=== PATIENT | male | born 1965 | race Caucasian/White ===

== ENCOUNTER 2017-10-31 13:34 | Inpatient (IN) | payer SELFPAY ==
[~2017-10-31 13:34] MED LIST: DEXAMETHASONE SOD PHOSPHATE INJ 4 MG/1 ML VIAL ONE; GLYCOPYRROLATE INJ 0.4 MG/2 ML VIAL ONE; LIDOCAINE 2% INJ-PF (20 MG/ML) 2 ML AMPUL ONE; NEOSTIGMINE METHYLSULFATE 10 MG/10 ML VIAL ONE; ONDANSETRON HCL INJ/PF 4 MG/2 ML SDV ONE; PHENYLEPHRINE HCL INJ/PF 10 MG/1 ML SDV ONE; ROCURONIUM BROMIDE INJ 50 MG/5 ML VIAL IV ONE; SUCCINYLCHOLINE CHLORIDE INJ 200 MG/10 ML VIAL ONE
[2017-10-31] MEDS ORDERED: ONDANSETRON HCL INJ/PF 4 MG/2 ML SDV IV PRN (22:11)
[2017-10-31] MEDS: MORPHINE SULFATE 10 MG/ML INJ IV PRN (22:48)
--- NOTE | 2017-10-31 23:34 | EKG REPORT ---
SEVERITY:- OTHERWISE NORMAL ECG - SINUS TACHYCARDIA : Confirmed by: Paulo Delgado 31-Oct-2017 23:34:19
--- NOTE | 2017-10-31 23:45 | PDOC H&P ---
History of Present Illness Admission Date/PCP: 10/31/17 19:46 Patient complains of: abdominal pains History of Present Illness: FRANCINE BURNS is a 52 year old male who felt a "pop" in the abdomen 3 days ago while having BM. Since then with abdominal pains with off and on diarrhea. C/O fever and chills and seen at ED. CT scan abdomen showed acute sigmoid diverticulitis with free air. Past Medical History Medical History: None Past Surgical History Past Surgical History: Reports: None Social History Smoking Status: Current Every Day Smoker Cigarettes Packs Per Day: 1 Frequency of Alcohol Use: Heavy - 6pack beer daily. Last drink during Holidays Hx Recreational Drug Use: No - Advance Directive Resuscitation Status: Full Code Family History Parental Family History Reviewed: Yes - mother with diverticulitis Children Family History Reviewed: Yes - Has GI problem Sibling(s) Family History Reviewed.: No Medication/Allergy Allergies/Adverse Reactions: Penicillins Allergy (Mild, Verified 11/01/17 02:10) Skin Redness Review of Systems Constitutional: PRESENT: chills, fever(s) Eyes: PRESENT: other - no vcisual/hearing problems Nose, Mouth, and Throat: PRESENT: other - no sore throat Cardiovascular: PRESENT: other - no chest pains Respiratory: PRESENT: cough Gastrointestinal: PRESENT: abdominal pain, nausea, vomiting Genitourinary: PRESENT: other - no dysuria Musculoskeletal: PRESENT: other - no back pain Integumentary: PRESENT: other - no rash Neurological: PRESENT: other - no seizures Psychiatric: PRESENT: other - no anxiety Endocrine: PRESENT: other - no polyuria Hematologic/Lymphatic: PRESENT: other - no easy bruisability Physical Exam Vital Signs: Temp Pulse Resp BP Pulse Ox 98 F 94 18 106/63 97 10/31/17 21:35 10/31/17 21:35 10/31/17 21:35 10/31/17 21:35 10/31/17 21:35 Intake & Output 10/30/17 10/31/17 11/01/17 06:59 06:59 06:59 Intake Total 3300 Output Total 700 Balance 2600 Weight 69.5 kg General appearance: PRESENT: severe distress Head exam: PRESENT: atraumatic Eye exam: PRESENT: conjunctiva pink Mouth exam: PRESENT: dry mucosa Neck exam: PRESENT: full ROM Respiratory exam: PRESENT: clear to auscultation ella Cardiovascular exam: PRESENT: tachycardia Pulses: PRESENT: normal radial pulses Vascular exam: PRESENT: normal capillary refill GI/Abdominal exam: PRESENT: rebound, rigid, tenderness Rectal exam: PRESENT: deferred Extremities exam: PRESENT: full ROM Musculoskeletal exam: PRESENT: ambulatory Neurological exam: PRESENT: alert, oriented to person, oriented to place, oriented to time, oriented to situation Psychiatric exam: PRESENT: appropriate affect Skin exam: PRESENT: normal color, warm Assessment & Plan - Diagnosis (1) Perforation of sigmoid colon due to diverticulitis Is this a current diagnosis for this admission?: Yes - Time Time Spent: 30 to 50 Minutes - Inpatient Certification Medical Necessity: Need For IV Fluids, Need for Pain Control, Need for IV Antibiotics, Need for Surgery - Plan Summary Plan Summary: Hydrate IV antibiotics For Explore lap,colostomy
[2017-10-31] MEDS: NORMAL SALINE 1000 ML 1,000 ML IV PRN (23:53)
[2017-10-31] MEDS: METRONIDAZOLE 500 MG/NS RTU 100 ML IV SCH (23:54)
[2017-10-31] MEDS: CIPROFLOXACIN 400 MG/D5W RTU 400 MG/200 ML RTUPB IV SCH (23:54)
--- NOTE | 2017-11-01 01:08 | OPERATIVE REPORT E ---
Operative Report NAME: FRANCINE BURNS : 1965 AGE: 52Y DATE OF SURGERY: 10/31/2017 ROOM: 609 PREOPERATIVE DIAGNOSIS: Perforated sigmoid diverticulitis with peritonitis. POSTOPERATIVE DIAGNOSIS: Perforated sigmoid diverticulitis with peritonitis. PROCEDURE PERFORMED: Exploratory laparotomy, sigmoid resection, and sigmoid colostomy, and Saw's pouch. SURGEON: URI [place] M.D. ANESTHESIA: General. INDICATION: This is a 52-year-old male who complained of severe pains of the abdomen for the past 3 days. Initially he noted a pop in the abdomen about 3 days ago, and has been having off and on abdominal pains and worsening today. Also, it has been off and on with diarrhea. He had a fever today with chills. A CT scan revealed a perforated bowel, likely from a sigmoid colon, with free air. DESCRIPTION OF PROCEDURE: After adequate general anesthesia, the patient was placed in supine position and the abdomen prepped and draped in the usual sterile fashion. A midline incision was made at the mid-epigastric area down to the symphysis pubis. The abdominal cavity was then entered, and a lot of purulent material noted all over the abdominal cavity. Cultures were obtained. Attention was then directed to the area of the sigmoid colon which was noted to be boggy with adhesions of small bowel. The adhesions were bluntly lysed. The proximal part of the sigmoid colon which was soft was then divided with a JORDAN stapler. The sigmoid colon, which appears to have perforation, was then dissected, and the posterior area divided and cauterized with the use of LigaSure down to softer area distally. The distal part of the colon above the peritoneal fold towards the rectum, which was softer, was then divided with TA-70. The specimen was then removed and noted to be markedly thickened, which on the medial side had some dark discoloration which appears to be the site of the perforation which was partially sealed with the small bowel. Specimen was about 16 cm long. The small bowel was then run and there was an area of foreign exudate that appears to be the one plastered to the sigmoid colon. The whole bowel appears to be viable. It was then checked from the ileum up to the ligament of Treitz and then jejunum. All the bowel noted to be intact. Abdominal cavity was then copiously irrigated with saline solution of at least 6 liters until flow was clear. I had a good hemostasis noted. A Dario-Mei drain was then placed through a stab wound in the right lower quadrant and placed into the pelvis, just above the Saw's pouch that was created. The sigmoid colon was then mobilized by dissecting through the lateral wall. We used scissors and blunt dissection. Medial area was also divided with the use of harmonic maricruz. An area in the left paraumbilical area was then identified for the colostomy site. Circumferential skin was removed, about 2.5 cm in diameter. The fascia was then divided with the use of cautery in a cruciate fashion, allowing at least 2 fingers to go through the rectus muscle towards the skin. Next the sigmoid was then passed through the created defect of the abdominal wall, making sure it is not twisted. Next, the fascia was then closed with running suture using 0 PDS, starting at both ends and tying them just above the umbilicus. The subcutaneous was then irrigated with saline solution. The skin was closed with anabel and embedded anbael. Telfa darren soaked in Betadine were placed. A sterile dressing was placed over the incision site. The drain was anchored to the skin with 3-0 Prolene. Attention was then directed to creating the end sigmoid colostomy.The sigmoid colon which was protruding was then stapled with an Endo JORDAN about 2 cm above the skin. The colostomy was then opened with the use of cautery. The edges of the sigmoid colon were then sutured to the dermis with serial interrupted 3-0 Vicryl. Colostomy appeared viable, and a colostomy bag was then placed over the colostomy. The patient tolerated the procedure well. Needle, instruments, and sponge counts were all correct. Estimated blood loss was about 100 mL. Patient was then brought to the recovery room in satisfactory condition, extubated. DICTATING PHYSICIAN: URI [place] M.D. [id number] PHY#: [id number] ID: [id number] JOB#: [id number] ACCT: [id number] cc:URI [place] M.D. > [facility]
[2017-11-01] MEDS ORDERED: INFLUENZA ADLT QUAD (36MOS+) 2017-18 VAC 0.5 ML SYR IM PRN (02:45)
[2017-11-01] MEDS: MORPHINE SULFATE 10 MG/ML INJ IV PRN ×3 (03:48→21:27)
[2017-11-01 05:59] LABS: ABSOLUTE LYMPHOCYTES (AUTO) 1.4 10^3/uL (0.5-4.7); ABSOLUTE MONOCYTES (AUTO) 0.8 10^3/uL (0.1-1.4); ABSOLUTE NEUT (AUTO) 17.7 10^3/uL (1.7-8.2); BASOPHILS % (AUTO) 0.1 % (0-2); HEMOGLOBIN 11.6 g/dL (13.5-17.0); LYMPHOCYTES % (AUTO) 7.1 % (13-45); MEAN CORPUSCULAR HEMOGLOBIN 32.3 pg (27.0-33.4); MEAN CORPUSCULAR HGB CONC 33.2 g/dL (32.0-36.0); MEAN CORPUSCULAR VOLUME 97 fl (80-97); MONOCYTES % (AUTO) 3.9 % (3-13); PLATELET COUNT 316 10^3/uL (150-450); RED CELL DISTRIBUTION WIDTH 13.2 % (11.5-14.0); SEGMENTED NEUTROPHILS % (AUTO) 88.9 % (42-78); TOTAL CELLS COUNTED % (AUTO) 100 %; WHITE BLOOD COUNT 19.9 10^3/uL (4.0-10.5)
[2017-11-01 06:18] LABS: ANION GAP 7 (5-19); BLOOD UREA NITROGEN 11 mg/dL (7-20); CALCIUM 7.4 mg/dL (8.4-10.2); CARBON DIOXIDE 23 mmol/L (22-30); CHLORIDE 104 mmol/L (98-107); GLUCOSE 123 mg/dL (75-110); POTASSIUM 4.6 mmol/L (3.6-5.0); SODIUM 133.7 mmol/L (137-145)
[2017-11-01] MEDS: METRONIDAZOLE 500 MG/NS RTU 100 ML IV SCH ×3 (06:28→21:30)
[2017-11-01 07:52] LABS: HEMATOCRIT 36.7 % (37.9-51.0); HEMOGLOBIN 12.6 g/dL (13.5-17.0); MEAN CORPUSCULAR HEMOGLOBIN 32.8 pg (27.0-33.4); MEAN CORPUSCULAR HGB CONC 34.2 g/dL (32.0-36.0); MEAN CORPUSCULAR VOLUME 96 fl (80-97); RED BLOOD COUNT 3.83 10^6/uL (4.35-5.55); RED CELL DISTRIBUTION WIDTH 12.8 % (11.5-14.0); WHITE BLOOD COUNT 16.9 10^3/uL (4.0-10.5)
[2017-11-01 07:55] LABS: ABSOLUTE MONOCYTES # (MANUAL) 0.7 10^3/uL (0.1-1.4); ABSOLUTE NEUTROPHILS# (MANUAL) 15.2 10^3/uL (1.7-8.2); BAND NEUTROPHILS % (MANUAL) 7 % (3-5); BASOPHILS % (MANUAL) 0 % (0-2); EOSINOPHILS % (MANUAL) 0 % (0-6); LYMPHOCYTES % (MANUAL) 6 % (13-45); METAMYELOCYTES % (MANUAL) 1 % (0); MONOCYTES % (MANUAL) 4 % (3-13); SEGMENTED NEUTROPHILS % (MAN) 82 % (42-78); TOTAL CELLS COUNTED 100; TOXIC GRANULATION 2+
[2017-11-01 07:56] LABS: PLATELET CLUMPS PRESENT; PLATELET COUNT 352 10^3/uL (150-450); PLATELET GIANT PRESENT; PLATELET LARGE PRESENT; SCHISTOCYTES 1+; TEAR DROP CELLS SLIGHT; TOXIC VACUOLATION PRESENT
[2017-11-01] MEDS: NORMAL SALINE 1000 ML 1,000 ML IV PRN ×2 (08:38→17:15)
--- NOTE | 2017-11-01 08:38 | PDOC PROGRESS REPORT ---
Subjective Progress Note for:: 11/01/17 Reason For Visit: SMALL BOWEL OBSTRUCTION Patient had an uneventful night, remains hemodynamically stable. Tolerated extubation. Physical Exam Vital Signs: Temp Pulse Resp BP Pulse Ox 98.6 F 90 14 112/74 100 10/31/17 21:50 10/31/17 21:50 11/01/17 06:36 11/01/17 06:36 11/01/17 06:36 Intake & Output 10/31/17 11/01/17 11/02/17 06:59 06:59 06:59 Intake Total 3300 Output Total 2020 Balance 1280 Weight 69.5 kg General appearance: PRESENT: no acute distress GI/Abdominal exam: PRESENT: other - Abdomen appropriately tender; honeycomb dressing with the Betadine stained plugs in between anabel; ostomy is pink. Sero sanguinous drainage from drain Results Laboratory Results: 11/01/17 05:40 11/01/17 05:40 11/01/17 11/01/17 05:40 05:40 WBC 19.9 H RBC 3.60 L Hgb 11.6 L Hct 35.0 L MCV 97 MCH 32.3 MCHC 33.2 RDW 13.2 Plt Count 316 Seg Neutrophils % 88.9 H Lymphocytes % 7.1 L Monocytes % 3.9 Eosinophils % 0.0 Basophils % 0.1 Absolute Neutrophils 17.7 H Absolute Lymphocytes 1.4 Absolute Monocytes 0.8 Absolute Eosinophils 0.0 Absolute Basophils 0.0 Sodium 133.7 L Potassium 4.6 Chloride 104 Carbon Dioxide 23 Anion Gap 7 BUN 11 Creatinine 0.56 Est GFR ( Amer) > 60 Est GFR (Non-Af Amer) > 60 Glucose 123 H Calcium 7.4 L Assessment & Plan - Diagnosis (1) Perforation of sigmoid colon due to diverticulitis Is this a current diagnosis for this admission?: Yes Plan: Postoperative day one half status post exploratory laparotomy, sigmoid colectomy , He's pouch, drain placement by Dr. Brown doing well, no complications. Plan: 1. We will get patient out of bed, clamp nasogastric tube; if tolerated, will discontinue. 2. We will initiate intravenous acetaminophen, and Toradol IV for pain management. 3. Patient continues to do well, anticipate transfer to the floor. 4. Discussed the above with patient and family at bedside. - Time Time Spent with patient: 15-24 minutes
[2017-11-01] MEDS ORDERED: KETOROLAC TROMETHAMINE INJ/PF 30 MG/1 ML SDV INJ PRN (08:53)
--- NOTE | 2017-11-01 09:47 | RADIOLOGY REPORT (SQ) ---
EXAM DESCRIPTION: CT ABD/PELVIS WITH IV ONLY COMPLETED DATE/TIME: 11/01/2017 1:31 am REASON FOR STUDY: SUDDEN ONSET ABD PAIN COMPARISON: None. TECHNIQUE: CT scan of the abdomen and pelvis performed using helical scanning technique with dynamic intravenous contrast injection. No oral contrast. Images reviewed with lung, soft tissue, and bone windows. Reconstructed coronal and sagittal MPR images reviewed. Delayed images for evaluation of the urinary system also acquired. All images stored on PACS. All CT scanners at this facility use dose modulation, iterative reconstruction, and/or weight based d osing when appropriate to reduce radiation dose to as low as reasonably achievable (ALARA). [facility]: Dose Right [facility]: CareDose [facility]: Dose Right [facility]: Teradose 4D [facility]: MedAvail CONTRAST TYPE AND DOSE: 71 mL Isovue 370 RENAL FUNCTION: GFR > 60. RADIATION DOSE: . LIMITATIONS: None. FINDINGS: LOWER CHEST: Calcified granuloma right lower lobe. Dependent subsegmental atelectasis. N o acute findings. LIVER: Normal size. No masses. No dilated ducts. SPLEEN: Normal size. No focal lesions. PANCREAS: No masses. No significant calcifications. No adjacent inflammation or peripancreatic fluid collections. Pancreatic duct not dilated. GALLBLADDER: No identified stones by CT criteria. No inflammatory changes to suggest cholecystitis. ADRENAL GLANDS: No significant masses or asymmetry. RIGHT KIDNEY AND URETER: No solid masses. No significant calcifications. No hydronephrosis or hyd roureter. LEFT KIDNEY AND URETER: No solid masses. No significant calcifications. No hydronephrosis or hydr oureter. AORTA AND VESSELS: No aneurysm. No dissection. Renal arteries, SMA, celiac without stenosis. RETROPERITONEUM: No retroperitoneal adenopathy, hemorrhage or masses. BOWEL AND PERITONEAL CAVITY: There appears to be acute diverticulitis involving the sigmoid colon wit h adjacent extraluminal fluid and gas collection compatible with perforation measuring 3.6 by 2.4 cm as seen on series 3, image 69 and series 602, image 43. There is additional diffuse inflammatory rancho nge involving small and large bowel loops which may represent reactive inflammation versus superimpos ed colitis and ileitis. There is a small amount of free intraperitoneal air. APPENDIX: Normal. PELVIS: No mass. Trace free fluid. Normal bladder. ABDOMINAL WALL: No masses. No hernias. BONES: No significant or acute findings. OTHER: No other significant finding. IMPRESSION: CT FINDINGS COMPATIBLE WITH PERFORATED DIVERTICULITIS WITH SMALL EXTRALUMINAL FLUID AND GAS COLLECTION IS WELL IS A SMALL AMOUNT OF FREE INTRAPERITONEAL AIR. ADDITIONAL NOTE MADE OF DIFFUS E INFLAMMATION OF SMALL AND LARGE BOWEL LOOPS WHICH MAY REPRESENT SUPERIMPOSED OR REACTIVE COLITIS AN D ILEITIS. SURGICAL CONSULTATION IS RECOMMENDED. COMMENT: RESULTS WERE COMMUNICATED TO THE PROVIDER AT 1549 HOURS ON 10/31/2017. TECHNICAL DOCUMENTATION: JOB ID: [id number] Quality ID # [id number]: Final reports with documentation of one or more dose reduction techniques (e.g., Au tomated exposure control, adjustment of the mA and/or kV according to patient size, use of iterative reconstruction technique) 2010 [employer] All Rights Reserved
[2017-11-01 10:35] LABS: VENOUS BLOOD BASE EXCESS 2.4 mmol/L; VENOUS BLOOD HCO3 26.6 mmol/L (20-32); VENOUS BLOOD PH 7.44 (7.30-7.42)
[2017-11-01 10:36] LABS: ANION GAP 12 (5-19); BLOOD UREA NITROGEN 14 mg/dL (7-20); CALCIUM 8.7 mg/dL (8.4-10.2); CARBON DIOXIDE 26 mmol/L (22-30); CHLORIDE 95 mmol/L (98-107); GLUCOSE 110 mg/dL (75-110); POTASSIUM 3.9 mmol/L (3.6-5.0); SODIUM 132.8 mmol/L (137-145)
[2017-11-01 10:37] LABS: ALANINE AMINOTRANSFERASE 89 U/L (21-72); ALBUMIN 3.6 g/dL (3.5-5.0); ALKALINE PHOSPHATASE 186 U/L (38-126); ASPARTATE AMINO TRANSFERASE 36 U/L (17-59); BILIRUBIN,DIRECT 0.8 mg/dL (0.0-0.4); BILIRUBIN,TOTAL 1.7 mg/dL (0.2-1.3); TOTAL PROTEIN 6.5 g/dL (6.3-8.2)
[2017-11-01 10:38] LABS: CREATINE KINASE 40 U/L (55-170); LIPASE 50.6 U/L (23-300)
[2017-11-01] MEDS: CIPROFLOXACIN 400 MG/D5W RTU 400 MG/200 ML RTUPB IV SCH ×2 (10:48→21:33)
[2017-11-01] MEDS: KETOROLAC TROMETHAMINE INJ/PF 30 MG/1 ML SDV IV PRN ×2 (10:49→17:13)
[2017-11-01] MEDS ORDERED: ACETAMINOPHEN INJ/PF 1000 MG/100 ML SDV IV SCH (12:00)
[2017-11-01] MEDS: ACETAMINOPHEN 100 ML IV PRN ×2 (15:18→21:13)
[2017-11-02] MEDS: KETOROLAC TROMETHAMINE INJ/PF 30 MG/1 ML SDV IV PRN ×2 (00:41→08:00)
[2017-11-02] MEDS: METRONIDAZOLE 500 MG/NS RTU 100 ML IV SCH ×3 (05:30→23:31)
[2017-11-02] MEDS: NORMAL SALINE 1000 ML 1,000 ML IV PRN ×2 (05:33→23:31)
[2017-11-02] MEDS: MORPHINE SULFATE 10 MG/ML INJ IV PRN ×4 (05:47→23:32)
[2017-11-02] MEDS: CIPROFLOXACIN 400 MG/D5W RTU 400 MG/200 ML RTUPB IV SCH ×2 (09:38→22:15)
[2017-11-02] MEDS: NICOTINE 21 MG/24 HR PATCH.TD24 TD SCH (09:38)
--- NOTE | 2017-11-02 16:46 | PDOC PROGRESS REPORT ---
Subjective Progress Note for:: 11/02/17 Subjective:: mild incisional pains. Feels gurgling of abdomen but colostomy still empty. Reason For Visit: SMALL BOWEL OBSTRUCTION Physical Exam Vital Signs: Temp Pulse Resp BP Pulse Ox 98.4 F 93 18 120/71 93 11/02/17 07:04 11/02/17 07:04 11/02/17 07:04 11/02/17 07:04 11/02/17 07:04 Intake & Output 11/01/17 11/02/17 11/03/17 06:59 06:59 06:59 Intake Total 3300 2659 0 Output Total 2019 1105 340 Balance 1280 1554 -340 Weight 69.5 kg 70 kg Exam: Incision clean and dry. Abd flat. + bowel sounds but colostomy still empty. Colostomy viable. Results Laboratory Results: 11/01/17 05:40 11/01/17 05:40 Impressions: Abdomen/Pelvis CT 10/31/17 00:00 IMPRESSION: CT FINDINGS COMPATIBLE WITH PERFORATED DIVERTICULITIS WITH SMALL EXTRALUMINAL FLUID AND GAS COLLECTION IS WELL IS A SMALL AMOUNT OF FREE INTRAPERITONEAL AIR. ADDITIONAL NOTE MADE OF DIFFUSE INFLAMMATION OF SMALL AND LARGE BOWEL LOOPS WHICH MAY REPRESENT SUPERIMPOSED OR REACTIVE COLITIS AND ILEITIS. SURGICAL CONSULTATION IS RECOMMENDED. Assessment & Plan - Diagnosis (1) Perforation of sigmoid colon due to diverticulitis Is this a current diagnosis for this admission?: Yes - Time Time Spent with patient: 15-24 minutes - Inpatient Certification Medical Necessity: Need For IV Fluids, Need for Pain Control, Need for IV Antibiotics - Plan Summary Plan Summary: D/C mendoza OOB Continue IV antibiotics As soon as colostomy starts to function, start po diet
[2017-11-03] MEDS: METRONIDAZOLE 500 MG/NS RTU 100 ML IV SCH ×3 (06:13→22:47)
[2017-11-03] MEDS: MORPHINE SULFATE 10 MG/ML INJ IV PRN (06:18)
[2017-11-03] MEDS: NICOTINE 21 MG/24 HR PATCH.TD24 TD SCH (11:00)
[2017-11-03] MEDS: CIPROFLOXACIN 400 MG/D5W RTU 400 MG/200 ML RTUPB IV SCH ×2 (11:00→21:08)
[2017-11-03] MEDS: ACETAMINOPHEN 100 ML IV PRN ×2 (11:01→22:27)
--- NOTE | 2017-11-03 13:56 | PDOC PROGRESS REPORT ---
Subjective Progress Note for:: 11/03/17 Subjective:: Feels a lot better today after the mendoza was removed. Wants to ambulate. Reason For Visit: SMALL BOWEL OBSTRUCTION Physical Exam Vital Signs: Temp Pulse Resp BP Pulse Ox 98.3 F 107 H 19 156/91 H 99 11/03/17 11:16 11/03/17 11:16 11/03/17 11:16 11/03/17 11:16 11/03/17 11:16 Intake & Output 11/02/17 11/03/17 11/04/17 06:59 06:59 06:59 Intake Total 2659 4055 476 Output Total 1150 1640 310 Balance 1509 2415 166 Weight 70 kg 71.7 kg Exam: Colostomy with small amount of gas and fluid. Abdomen is soft and nontender. Results Laboratory Results: 11/01/17 05:40 11/01/17 05:40 Impressions: Abdomen/Pelvis CT 10/31/17 00:00 IMPRESSION: CT FINDINGS COMPATIBLE WITH PERFORATED DIVERTICULITIS WITH SMALL EXTRALUMINAL FLUID AND GAS COLLECTION IS WELL IS A SMALL AMOUNT OF FREE INTRAPERITONEAL AIR. ADDITIONAL NOTE MADE OF DIFFUSE INFLAMMATION OF SMALL AND LARGE BOWEL LOOPS WHICH MAY REPRESENT SUPERIMPOSED OR REACTIVE COLITIS AND ILEITIS. SURGICAL CONSULTATION IS RECOMMENDED. Assessment & Plan - Diagnosis (1) Perforation of sigmoid colon due to diverticulitis Is this a current diagnosis for this admission?: Yes - Time Time Spent with patient: 15-24 minutes - Inpatient Certification Medical Necessity: Need For IV Fluids, Need for IV Antibiotics, Risk of Complication if Not Cared For in Hospital - Plan Summary Plan Summary: Continue antibiotic Start sips of clear liquids Ambulate
[2017-11-03] MEDS ORDERED: ENOXAPARIN SODIUM INJ 40 MG/0.4 ML DISP.SYRIN SUBCUT ONE (14:00)
[2017-11-04] MEDS: MORPHINE SULFATE 10 MG/ML INJ IV PRN ×3 (02:23→22:27)
[2017-11-04] MEDS: NORMAL SALINE 1000 ML 1,000 ML IV PRN ×2 (05:09→16:44)
[2017-11-04] MEDS: METRONIDAZOLE 500 MG/NS RTU 100 ML IV SCH ×3 (05:10→22:27)
[2017-11-04] MEDS: ENOXAPARIN SODIUM INJ 40 MG/0.4 ML DISP.SYRIN SUBCUT SCH (09:24)
[2017-11-04] MEDS: NICOTINE 21 MG/24 HR PATCH.TD24 TD SCH (09:25)
[2017-11-04] MEDS: CIPROFLOXACIN 400 MG/D5W RTU 400 MG/200 ML RTUPB IV SCH ×2 (09:25→21:14)
--- NOTE | 2017-11-04 11:53 | PDOC PROGRESS REPORT ---
Subjective Progress Note for:: 11/04/17 Subjective:: Hungry. Minimal abdominal pain. Reason For Visit: SMALL BOWEL OBSTRUCTION Physical Exam Vital Signs: Temp Pulse Resp BP Pulse Ox 98.6 F 91 16 160/83 H 96 11/04/17 07:53 11/04/17 07:53 11/04/17 07:53 11/04/17 07:53 11/04/17 07:53 Intake & Output 11/03/17 11/04/17 11/05/17 06:59 06:59 06:59 Intake Total 4055 3576 Output Total 1640 730 Balance 2415 2846 Weight 71.7 kg General appearance: PRESENT: no acute distress, cooperative Respiratory exam: PRESENT: clear to auscultation ella Cardiovascular exam: PRESENT: RRR GI/Abdominal exam: PRESENT: other - Active bowel sounds. Abdomen is moderately distended with minimal tenderness. Ostomy appears pink but there is no air in the bag. KASIE drain output is serosanguineous and clear Results Laboratory Results: 11/01/17 05:40 11/01/17 05:40 Impressions: Abdomen/Pelvis CT 10/31/17 00:00 IMPRESSION: CT FINDINGS COMPATIBLE WITH PERFORATED DIVERTICULITIS WITH SMALL EXTRALUMINAL FLUID AND GAS COLLECTION IS WELL IS A SMALL AMOUNT OF FREE INTRAPERITONEAL AIR. ADDITIONAL NOTE MADE OF DIFFUSE INFLAMMATION OF SMALL AND LARGE BOWEL LOOPS WHICH MAY REPRESENT SUPERIMPOSED OR REACTIVE COLITIS AND ILEITIS. SURGICAL CONSULTATION IS RECOMMENDED. Assessment & Plan - Diagnosis (1) Perforation of sigmoid colon due to diverticulitis Is this a current diagnosis for this admission?: Yes Plan: Status post He's procedure. Abdomen is still distended and there is no air in the ostomy bag. Will await bowel function. Encourage ambulation. Hold off diet until we see at least some air in the ostomy bag. LEONARDA KASIE drain.
[2017-11-05] MEDS: METRONIDAZOLE 500 MG/NS RTU 100 ML IV SCH ×3 (05:21→21:30)
[2017-11-05] MEDS: NORMAL SALINE 1000 ML 1,000 ML IV PRN (09:50)
[2017-11-05] MEDS: CIPROFLOXACIN 400 MG/D5W RTU 400 MG/200 ML RTUPB IV SCH ×2 (09:53→21:30)
[2017-11-05] MEDS: NICOTINE 21 MG/24 HR PATCH.TD24 TD SCH (09:53)
[2017-11-05] MEDS: ENOXAPARIN SODIUM INJ 40 MG/0.4 ML DISP.SYRIN SUBCUT SCH (09:54)
[2017-11-05] MEDS: TRAMADOL HCL 50 MG TABLET PO PRN (14:20)
--- NOTE | 2017-11-05 17:33 | PDOC PROGRESS REPORT ---
Subjective Progress Note for:: 11/05/17 Subjective:: colostomy starting to function Reason For Visit: SMALL BOWEL OBSTRUCTION Physical Exam Vital Signs: Temp Pulse Resp BP Pulse Ox 98.8 F 89 17 135/73 H 95 11/05/17 15:59 11/05/17 15:59 11/05/17 15:59 11/05/17 15:59 11/05/17 15:59 Intake & Output 11/04/17 11/05/17 11/06/17 06:59 06:59 06:59 Intake Total 3576 4540 Output Total 730 1760 Balance 2846 2780 Exam: abdomen is soft with mild renderness st the incision. Colostomy with small amount of brownish fluid. This was emptied 2x according to the nurses. Results Laboratory Results: 11/01/17 05:40 11/01/17 05:40 Impressions: Abdomen/Pelvis CT 10/31/17 00:00 IMPRESSION: CT FINDINGS COMPATIBLE WITH PERFORATED DIVERTICULITIS WITH SMALL EXTRALUMINAL FLUID AND GAS COLLECTION IS WELL IS A SMALL AMOUNT OF FREE INTRAPERITONEAL AIR. ADDITIONAL NOTE MADE OF DIFFUSE INFLAMMATION OF SMALL AND LARGE BOWEL LOOPS WHICH MAY REPRESENT SUPERIMPOSED OR REACTIVE COLITIS AND ILEITIS. SURGICAL CONSULTATION IS RECOMMENDED. Assessment & Plan - Diagnosis (1) Perforation of sigmoid colon due to diverticulitis Is this a current diagnosis for this admission?: Yes - Time Time Spent with patient: 15-24 minutes - Plan Summary Plan Summary: Start clears today and stop IV fluids
[2017-11-06] MEDS: TRAMADOL HCL 50 MG TABLET PO PRN ×3 (00:27→23:14)
[2017-11-06] MEDS: METRONIDAZOLE 500 MG/NS RTU 100 ML IV SCH ×3 (05:32→22:35)
[2017-11-06] MEDS: ENOXAPARIN SODIUM INJ 40 MG/0.4 ML DISP.SYRIN SUBCUT SCH (10:27)
[2017-11-06] MEDS: CIPROFLOXACIN 400 MG/D5W RTU 400 MG/200 ML RTUPB IV SCH ×2 (10:27→22:35)
[2017-11-06] MEDS: NICOTINE 21 MG/24 HR PATCH.TD24 TD SCH (10:28)
--- NOTE | 2017-11-06 14:48 | PDOC PROGRESS REPORT ---
Subjective Progress Note for:: 11/06/17 Reason For Visit: SMALL BOWEL OBSTRUCTION Patient is doing well, no complaints; tolerating clear liquids, ambulating. Having gas and stool released from the ostomy. Physical Exam Vital Signs: Temp Pulse Resp BP Pulse Ox 98.9 F 93 12 144/92 H 94 11/06/17 12:25 11/06/17 12:25 11/06/17 12:25 11/06/17 12:25 11/06/17 12:25 Intake & Output 11/05/17 11/06/17 11/07/17 06:59 06:59 06:59 Intake Total 4540 2940 Output Total 1760 600 Balance 2780 2340 General appearance: PRESENT: no acute distress GI/Abdominal exam: PRESENT: other - Removed; anabel intact, minimal erythema. Ostomy appliance with bag with gas and stool. Results Laboratory Results: 11/01/17 05:40 11/01/17 05:40 Impressions: Abdomen/Pelvis CT 10/31/17 00:00 IMPRESSION: CT FINDINGS COMPATIBLE WITH PERFORATED DIVERTICULITIS WITH SMALL EXTRALUMINAL FLUID AND GAS COLLECTION IS WELL IS A SMALL AMOUNT OF FREE INTRAPERITONEAL AIR. ADDITIONAL NOTE MADE OF DIFFUSE INFLAMMATION OF SMALL AND LARGE BOWEL LOOPS WHICH MAY REPRESENT SUPERIMPOSED OR REACTIVE COLITIS AND ILEITIS. SURGICAL CONSULTATION IS RECOMMENDED. Assessment & Plan - Diagnosis (1) Perforation of sigmoid colon due to diverticulitis Is this a current diagnosis for this admission?: Yes Plan: Patient now 6 days status post exploratory laparotomy, sigmoid colectomy, He's procedure for perforated diverticulitis. He is doing well tolerating a diet Recommendations: 1. We will advance diet, get him in the shower, get him ambulating . Anticipate discharge home tomorrow switching from IV to oral pain medication.
[2017-11-07] MEDS: METRONIDAZOLE 500 MG/NS RTU 100 ML IV SCH (05:12)
[2017-11-07] MEDS: TRAMADOL HCL 50 MG TABLET PO PRN (07:29)
[2017-11-07 10:17] VITALS: BP 135/72
--- NOTE | 2017-11-08 04:29 | DISCHARGE SUMMARY E ---
Discharge Summary NAME: FRANCINE BURNS : 1965 AGE: 52Y ADMITTED: 10/31/2017 DISCHARGED: 11/07/2017 REASON FOR ADMISSION: Acute abdominal pain. SUMMARY OF HOSPITALIZATION: The patient is a 52-year-old white male, who presented to the emergency department complaining of acute onset abdominal pain. He was evaluated and found to have by CT scan of the abdomen and pelvis, findings consistent with acute diverticulitis with perforation. The patient was admitted to the Surgical service and taken the operating room by Dr. Ny, where he underwent exploratory laparotomy, sigmoid colectomy, colostomy and Saw's procedure. Postoperative, the patient was followed in the Intensive Care Unit, then transferred to the floor on postoperative day 2. Midline incision darren were removed. Patient was started on a diet after nasogastric tube removed and he tolerated this well. By the 5th postoperative day, he started to have reliable colostomy output. He and his family were instructed on ostomy care. Lord catheter was removed on second postoperative day and he voided without difficulty. By the 7th postoperative day, he was getting about well, having good pain control and ready for discharge home. FINAL DIAGNOSIS: COMPLICATED DIVERTICULITIS WITH PERFORATION, HINCHEY CLASSIFICATION 3, STATUS POST EXPLORATORY LAPAROTOMY, SIGMOID COLECTOMY AND COLOSTOMY BY DR. NY. DISPOSITION: The patient will be discharged to home in the care of his family. Follow up with [facility] in approximately 1 weeks for staple removal. He has been instructed on ostomy care. Prescription for tramadol 50 mg p.o. every 6 hours p.r.n. pain provided. No further oral antibiotics prescribed. DICTATING PHYSICIAN: TERRY BEAR M.D. [id number] PHY#: [id number] ID: [id number] JOB#: [id number] ACCT: [id number] cc:TERRY BEAR M.D. [facility],
== END 2017-11-07 12:00 | disposition home or self-care (01) | DRG 330 ==
LOC: ER 19:44 → EH 19:46 → ICU 21:34 → 3W 11-02 01:19 → 4S 11-03 19:11
PROVIDERS: ADMIT Surgery; ATTEND Surgery
PROC: 0D1N0Z4 Bypass Sigmoid Colon to Cutaneous, Open Approach (ICD-10-PCS; 2017-10-31)
PROC: 0DBN0ZZ Excision of Sigmoid Colon, Open Approach (ICD-10-PCS; principal; 2017-10-31 17:45)
DX: K57.20 Diverticulitis of large intestine with perforation and abscess without bleeding (principal); I10 Essential (primary) hypertension; F32.9 Major depressive disorder, single episode, unspecified; F17.210 Nicotine dependence, cigarettes, uncomplicated; Z88.0 Allergy status to penicillin
CPT/HCPCS: 36415; 74177; 790; 80048; 80053; 81001; 82550; 82803; 83605; 83690; 84484; 85025; 86850; 86900; 86901; 87070; 87075; 87077; 87205; 88307; 93005; 93010; 94799; J0131; J0330; J0744; J1100; J1650; J1885; J2270; J2370; J2405; J3490; J7030

== ENCOUNTER 2018-07-21 05:42 | Day surgery (SDC) | payer OTHER ==
[2018-07-21] MEDS ORDERED: PROPOFOL INJ 200 MG/20 ML VIAL IV ONE ×2 (06:46→08:47)
[2018-07-21] MEDS ORDERED: ONDANSETRON HCL INJ/PF 4 MG/2 ML SDV IV PRN (07:58)
[2018-07-21] MEDS ORDERED: DIPHENHYDRAMINE HCL 50 MG/ML VIAL IV PRN (07:58)
[2018-07-21] MEDS ORDERED: FENTANYL CITRATE INJ/PF 100 MCG/2 ML AMPUL IV PRN ×3 (07:58)
[2018-07-21] MEDS ORDERED: MEPERIDINE HCL/PF INJ 25 MG/1 ML DISP.SYRIN IV PRN (07:58)
[2018-07-21 08:58] VITALS: BP 138/89
--- NOTE | 2018-07-21 10:38 | Discharge Summary ---
Discharge Summary (SDC) - Discharge Final Diagnosis: Unwanted colostomy. Parastomal hernia. Date of Surgery: 07/21/18 Discharge Date: 07/21/18 Forms: ASU Anesthesia D/C Instruction, Discharge POC-Surgical Service Referrals: LUIS EDUARDO JENKINS MD [ACTIVE STAFF] - (Your follow-up appointment will be made after your surgery on 07/22/18.) Discharge Diet: Full Liquids Respiratory Treatments at Home: Deep Breathing/Coughing, Incentive Spirometer Discharge Activity: Balance Activity w/Rest Home Care Assistance: None Needed Report the Following to Your Physician Immediately: Shortness of Breath, Nausea , Vomiting, Increase in Pain, Fever over 101 Degrees, Unusual Bleeding
--- NOTE | 2018-07-21 10:41 | Operative Report ---
Nonrecallable Operative Report DATE OF SURGERY: 07/21/18 PREOPERATIVE DIAGNOSIS: Unwanted colostomy, parastomal hernia. POSTOPERATIVE DIAGNOSIS: 1. Same as above. 2. Scattered diverticulosis. OPERATION: Colonoscopy to the cecum, through left lower quadrant stoma. SURGEON: LUIS EDUARDO JENKINS ANESTHESIA: LMAC TISSUE REMOVED OR ALTERED: None COMPLICATIONS: None apparent ESTIMATED BLOOD LOSS: None PROCEDURE: Drains/implants: None. Procedure in detail: After informed consent was obtained, the patient was brought to the operating room and laid in the supine position. The colonoscope was then inserted into the left lower quadrant colostomy site. The scope was passed through the descending colon, across the transverse colon, down the ascending colon, and into the cecum. The ileocecal valve and appendiceal orifice were identified. The scope was then withdrawn circumferentially noting the mucosa. The prep was very good. The scope was withdrawn past the ascending colon, transverse colon, down the descending colon, and out the left lower quadrant colostomy. Scattered diverticulosis were seen in the distal descending colon. No masses, lesions, polyps, or other abnormalities could be identified. Scope was then inserted into the rectum. Scope was advanced up the rectum to approximately 20 cm. There was mild disuse colitis present in the rectum. There were no masses, lesions, polyps, or other abnormalities. The rectum was irrigated, and the scope was removed. The procedure at this time was concluded. All sponge, instrument, and needle counts were correct x2. Condition: Stable.
== END 2018-07-21 08:55 | disposition home or self-care (01) ==
LOC: OROUT 05:42
PROVIDERS: ATTEND Surgery
DX: K57.30 Diverticulosis of large intestine without perforation or abscess without bleeding (principal); Z93.3 Colostomy status; I10 Essential (primary) hypertension; Z87.891 Personal history of nicotine dependence; Z88.0 Allergy status to penicillin
CPT/HCPCS: 44388; J2704; 811

== ENCOUNTER 2018-07-22 05:28 | Inpatient (IN) | payer OTHER ==
--- NOTE | 2018-07-05 11:32 | RADIOLOGY REPORT (SQ) ---
EXAM DESCRIPTION: CHEST PA/LATERAL COMPLETED DATE/TIME: 07/05/2018 11:22 am REASON FOR STUDY: PRE-OP COMPARISON: CT abdomen pelvis 10/31/2017 EXAM PARAMETERS: NUMBER OF VIEWS: two views TECHNIQUE: Digital Frontal and Lateral radiographic views of the chest acquired. RADIATION DOSE: NA LIMITATIONS: none FINDINGS: LUNGS AND PLEURA: Calcified smooth round 2 cm nodule right lung base unchanged CT exam 10/31, likely benign postinflammatory change. Calcified irregular 1 cm nodule anterior left lung bas e unchanged from CT exam 10/31/2017, also likely benign postinflammatory change. No acute infiltrates. No pleural effusion or pneumothorax. MEDIASTINUM AND HILAR STRUCTURES: No masses or contour abnormalities. HEART AND VASCULAR STRUCTURES: Heart normal size. No evidence for failure. BONES: Osteoporotic HARDWARE: None in the chest. OTHER: No other significant finding. IMPRESSION: Stable calcified nodules of the right posterior and left anterior lung base. No acute findings TECHNICAL DOCUMENTATION: JOB ID: [id number] 1664 [employer]- All Rights Reserved Reading location - IP/workstation name: [email or web address]
[2018-07-05 11:42] LABS: HEMATOCRIT 43.5 % (37.9-51.0); MEAN CORPUSCULAR HEMOGLOBIN 31.6 pg (27.0-33.4); MEAN CORPUSCULAR HGB CONC 34.4 g/dL (32.0-36.0); MEAN CORPUSCULAR VOLUME 92 fl (80-97); PLATELET COUNT 262 10^3/uL (150-450); RED BLOOD COUNT 4.74 10^6/uL (4.35-5.55); RED CELL DISTRIBUTION WIDTH 13.3 % (11.5-14.0); WHITE BLOOD COUNT 8.4 10^3/uL (4.0-10.5)
[2018-07-05 12:00] LABS: ALANINE AMINOTRANSFERASE 32 U/L (21-72); ALBUMIN 4.7 g/dL (3.5-5.0); ALKALINE PHOSPHATASE 64 U/L (38-126); ANION GAP 10 (5-19); ASPARTATE AMINO TRANSFERASE 18 U/L (17-59); BILIRUBIN,DIRECT 0.2 mg/dL (0.0-0.4); BILIRUBIN,TOTAL 0.6 mg/dL (0.2-1.3); BLOOD UREA NITROGEN 9 mg/dL (7-20); CARBON DIOXIDE 28 mmol/L (22-30); CHLORIDE 103 mmol/L (98-107); GLUCOSE 97 mg/dL (75-110); POTASSIUM 4.7 mmol/L (3.6-5.0); SODIUM 140.9 mmol/L (137-145); TOTAL PROTEIN 7.7 g/dL (6.3-8.2)
--- NOTE | 2018-07-05 23:03 | EKG REPORT ---
SEVERITY:- NORMAL ECG - SINUS RHYTHM : Confirmed by: Paulo Delgado 05-Jul-2018 23:02:36
[~2018-07-22 05:28] MED LIST changes: +CIPROFLOXACIN 400 MG/D5W RTU 400 MG/200 ML RTUPB IV ONE; +CIPROFLOXACIN 400 MG/D5W RTU 400 MG/200 ML RTUPB IV PRN; -DEXAMETHASONE SOD PHOSPHATE INJ 4 MG/1 ML VIAL ONE; -GLYCOPYRROLATE INJ 0.4 MG/2 ML VIAL ONE; +LACTATED RINGERS 1000 ML IV PRN; +LIDOCAINE 0.5% INJ-PF (5 MG/ML) 50 ML SDV SUBCUT PRN; -LIDOCAINE 2% INJ-PF (20 MG/ML) 2 ML AMPUL ONE; +METRONIDAZOLE 500 MG/NS RTU 500 MG/100 ML RTUPB IV ONE; +METRONIDAZOLE 500 MG/NS RTU 500 MG/100 ML RTUPB IV PRN; -NEOSTIGMINE METHYLSULFATE 10 MG/10 ML VIAL ONE; -ONDANSETRON HCL INJ/PF 4 MG/2 ML SDV ONE; -PHENYLEPHRINE HCL INJ/PF 10 MG/1 ML SDV ONE; -ROCURONIUM BROMIDE INJ 50 MG/5 ML VIAL IV ONE; -SUCCINYLCHOLINE CHLORIDE INJ 200 MG/10 ML VIAL ONE
[2018-07-22] MEDS ORDERED: LIDOCAINE 2% INJ-PF (20 MG/ML) 10 ML AMPUL ONE (06:30)
[2018-07-22] MEDS ORDERED: MIDAZOLAM 2 MG/2 ML INJ ONE (06:31)
[2018-07-22] MEDS ORDERED: ACETAMINOPHEN 1,000 MG/100 ML RTUPB IV ONE (06:31)
[2018-07-22] MEDS ORDERED: DEXAMETHASONE SOD PHOSPHATE INJ 4 MG/1 ML VIAL ONE (06:31)
[2018-07-22] MEDS ORDERED: FENTANYL CITRATE INJ/PF 250 MCG/5 ML AMPULE ONE (06:31)
[2018-07-22] MEDS ORDERED: ONDANSETRON HCL INJ/PF 4 MG/2 ML SDV ONE (06:31)
[2018-07-22] MEDS ORDERED: PROPOFOL INJ 200 MG/20 ML VIAL IV ONE (06:31)
[2018-07-22] MEDS ORDERED: BUPIVACAINE HCL 0.5 % INJ/PF 30 ML SDV ONE (06:40)
[2018-07-22] MEDS ORDERED: SUGAMMADEX SODIUM 200 MG/2 ML SDV IV ONE (06:41)
[2018-07-22] MEDS ORDERED: MORPHINE SULFATE 10 MG/ML INJ IV PRN ×2 (08:32→12:20)
[2018-07-22] MEDS ORDERED: DIPHENHYDRAMINE HCL 50 MG/ML VIAL IV PRN ×2 (08:32→12:20)
[2018-07-22] MEDS ORDERED: FENTANYL CITRATE INJ/PF 100 MCG/2 ML AMPUL IV PRN ×6 (08:32→12:20)
[2018-07-22] MEDS ORDERED: PROMETHAZINE HCL INJ 25 MG/1 ML VIAL IV PRN ×4 (08:32→12:20)
[2018-07-22] MEDS ORDERED: ONDANSETRON HCL INJ/PF 4 MG/2 ML SDV IV PRN ×3 (08:32→14:45)
[2018-07-22] MEDS ORDERED: MEPERIDINE HCL/PF INJ 25 MG/1 ML DISP.SYRIN IV PRN ×2 (08:32→12:20)
[2018-07-22] MEDS ORDERED: HYDROMORPHONE HCL INJ/PF 2 MG/ML AMPULE ONE (08:57)
[2018-07-22] MEDS ORDERED: SUCCINYLCHOLINE CHLORIDE INJ 200 MG/10 ML VIAL ONE (10:25)
[2018-07-22] MEDS ORDERED: ROCURONIUM BROMIDE INJ 50 MG/5 ML VIAL IV ONE (10:25)
[2018-07-22] MEDS: FENTANYL CITRATE INJ/PF 100 MCG/2 ML AMPUL ONE ×2 (14:45→15:00)
[2018-07-22] MEDS: METRONIDAZOLE 500 MG/NS RTU 500 MG/100 ML RTUPB IV SCH ×2 (16:34→21:44)
[2018-07-22] MEDS: MORPHINE SULFATE 60 MG/60 ML RTUINJ IV PRN (17:28)
[2018-07-22] MEDS: ACETAMINOPHEN 1,000 MG/100 ML RTUPB IV SCH (18:37)
[2018-07-22] MEDS ORDERED: CIPROFLOXACIN 400 MG/D5W RTU 400 MG/200 ML RTUPB IV SCH (20:00)
[2018-07-22] MEDS: DEXTROSE 5%-LACTATED RINGERS 1,000 ML IV PRN (20:02)
[2018-07-22] MEDS: FAMOTIDINE INJ/PF 20 MG/2 ML SDV IV SCH (21:44)
[2018-07-22] MEDS: KETOROLAC TROMETHAMINE INJ/PF 30 MG/1 ML SDV IV SCH (21:44)
[2018-07-23] MEDS: ACETAMINOPHEN 1,000 MG/100 ML RTUPB IV SCH ×3 (01:50→17:18)
[2018-07-23] MEDS: KETOROLAC TROMETHAMINE INJ/PF 30 MG/1 ML SDV IV SCH ×3 (05:13→21:10)
[2018-07-23] MEDS: DEXTROSE 5%-LACTATED RINGERS 1,000 ML IV PRN ×3 (05:16→21:10)
[2018-07-23 05:46] LABS: ABSOLUTE BASOPHILS # (AUTO) 0.1 10^3/uL (0.0-0.2); ABSOLUTE LYMPHOCYTES (AUTO) 1.7 10^3/uL (0.5-4.7); ABSOLUTE MONOCYTES (AUTO) 1.3 10^3/uL (0.1-1.4); ABSOLUTE NEUT (AUTO) 8.3 10^3/uL (1.7-8.2); BASOPHILS % (AUTO) 0.5 % (0-2); EOSINOPHILS % (AUTO) 0.1 % (0-6); HEMATOCRIT 37.4 % (37.9-51.0); HEMOGLOBIN 12.7 g/dL (13.5-17.0); LYMPHOCYTES % (AUTO) 14.9 % (13-45); MEAN CORPUSCULAR HEMOGLOBIN 31.6 pg (27.0-33.4); MEAN CORPUSCULAR HGB CONC 33.8 g/dL (32.0-36.0); MEAN CORPUSCULAR VOLUME 93 fl (80-97); PLATELET COUNT 256 10^3/uL (150-450); RED BLOOD COUNT 4.01 10^6/uL (4.35-5.55); RED CELL DISTRIBUTION WIDTH 13.5 % (11.5-14.0); SEGMENTED NEUTROPHILS % (AUTO) 73.5 % (42-78); TOTAL CELLS COUNTED % (AUTO) 100 %; WHITE BLOOD COUNT 11.4 10^3/uL (4.0-10.5)
[2018-07-23 06:16] LABS: ALANINE AMINOTRANSFERASE 25 U/L (21-72); ALKALINE PHOSPHATASE 36 U/L (38-126); ANION GAP 9 (5-19); ASPARTATE AMINO TRANSFERASE 26 U/L (17-59); BILIRUBIN,DIRECT 0.5 mg/dL (0.0-0.4); BILIRUBIN,TOTAL 0.8 mg/dL (0.2-1.3); BLOOD UREA NITROGEN 15 mg/dL (7-20); CALCIUM 8.2 mg/dL (8.4-10.2); CARBON DIOXIDE 23 mmol/L (22-30); CHLORIDE 105 mmol/L (98-107); GLUCOSE 137 mg/dL (75-110); POTASSIUM 4.6 mmol/L (3.6-5.0); TOTAL PROTEIN 5.3 g/dL (6.3-8.2)
[2018-07-23] MEDS: ENOXAPARIN SODIUM INJ 40 MG/0.4 ML DISP.SYRIN SUBCUT SCH (09:51)
[2018-07-23] MEDS: FAMOTIDINE INJ/PF 20 MG/2 ML SDV IV SCH ×2 (09:51→21:10)
--- NOTE | 2018-07-23 12:33 | Operative Report ---
Nonrecallable Operative Report DATE OF SURGERY: 07/22/18 PREOPERATIVE DIAGNOSIS: 1. Unwanted colostomy. 2. Parastomal hernia. POSTOPERATIVE DIAGNOSIS: Same as above OPERATION: 1. Takedown of left lower quadrant colostomy. 2. Handsewn colorectal anastomosis. 3. Repair of left lower quadrant ventral hernia with Toyah Bio-A mesh. 4. Flexible sigmoidoscopy. SURGEON: LUIS EDUARDO JENKINS ANESTHESIA: GA TISSUE REMOVED OR ALTERED: 1. Colostomy. 2. Rectal stump COMPLICATIONS: Inadequate anastomosis with EEA stapler, necessitating a handsewn colorectal anastomosis. ESTIMATED BLOOD LOSS: 650 cc PROCEDURE: Drains/implants: 1. 15 Chinese round Jose Miguel drain in the pelvis. 2. 9 x 15 cm Toyah Bio-A hernia mesh. Procedure in detail: After informed consent was obtained, the patient was laid in the lithotomy position. The left lower quadrant colostomy site was closed using 0 silk suture in a baseball stitch, locking fashion. The area of the abdomen was then prepped and draped in a normal sterile fashion. A 10 blade scalpel was used to create an incision within the bounds the previous scar on the abdominal wall. Dissection was carried through the subcutaneous tissue using sharp dissection and Bovie electrocautery. The linea alba fascia was incised sharply, the abdomen was entered sharply. There were a small amount of intra-abdominal adhesions to the anterior abdominal wall. These were taken down. Once the abdomen was opened, the rectum was inspected. A marking Prolene stitch was identified, and the previous staple line was easily located. Attention was then turned to takedown of the left lower quadrant colostomy. Incision was created around the external colostomy opening on the abdominal skin. This was done with a 10 blade scalpel. Dissection was carried through the subcutaneous tissue to the area of the parastomal hernia using sharp dissection. The parastomal hernia was opened. There was a moderate amount of small bowel and colon within the hernia sac. This was freed sharply and reduced back into the abdominal cavity. The hernia sac was then removed, down to the fascia. Once the parastomal hernia was reduced, the fascia was closed in the craniocaudal direction. This was accomplished using #1 Prolene suture in [id number] fashion. Owing to the large diameter of the parastomal hernia, a reinforcement with mesh was thought to be prudent. A 9 x 15 cm Toyah Bio-A hernia mesh was chosen to buttress the defect. The mesh was sewn to the abdominal wall using #1 Vicryl in trans-fascial, mattress fashion. Once this was completed, attention was turned to creating the colorectal anastomosis. Rectal dilators were inserted into the rectum. There were 3 dilators, increasing in size from 25 mm to 29 mm to 33 mm. All 3 dilators passed easily into the rectum, up to the rectosigmoid junction. Next, a 29 EEA stapler was chosen. An attempt was made to pass it into the rectum. It did not pass easily. Upon further inspection of the rectum, there was evidence of a previous inflammatory response with folding of the rectosigmoid junction. Dissection was then performed to free the rectum, and facilitate placement of the EEA stapler. Dissection was carried down to the peritoneal reflection. Rectum was elevated and divided with the contour stapling device at the level of the peritoneal reflection. The EEA stapler then passed up to the resection level. The anvil was placed into the descending colon and fit easily. The EEA stapler was inserted and deployed, creating a colorectal anastomosis. The anastomosis was then tested with a flexible sigmoidoscope. There were obvious defects in the anterior and posterior aspect of the anastomosis. The anastomosis was then taken down, and a stapled technique was abandoned. A handsewn anastomosis was felt to be the most prudent course of action in light of the recent failure of the stapler. The descending colon was spatulated somewhat. Posterior 3-0 Vicryl Lembert sutures were placed (but not tightened) across the posterior one third of the colon and rectum. Next, 3-0 PDS suture was used to circumferentially approximate the colon and rectum. The suture was begun posteriorly and run laterally in circumferential fashion to the anterior position. This was done with two separate sutures on the right and left side. Anteriorly, the separate PDS sutures were tied together, completing the first layer of the anastomosis. The posterior Lembert sutures were tied snug, and Lembert sutures were continued anteriorly until the 2 layered anastomosis was complete. Next, sterile water was filled into the pelvis and flexible sigmoidoscopy was undertaken. The flexible sigmoidoscope was inserted into the rectum. Air was insufflated into the rectum. The scope was advanced to visualize the anastomosis. The anastomosis was wide open and the colon was patent. No leakage of air was seen in the pelvis during the flexible sigmoidoscopy. Air did escape from the rectum (around the sigmoidoscope) during the flexible sigmoidoscopy. This confirmed that the anastomosis was free of any defects or leakages. Once this was confirmed, the abdomen was copiously irrigated with saline solution. Attention was then turned to closure. A 15 Chinese round Jose Miguel drain was placed into the pelvis, adjacent to the anastomosis. It was brought out through a separate stab incision. The drain was tied to the abdominal wall using 2-0 nylon suture. The midline fascia was then reapproximated using #1 double-stranded looped PDS suture in simple running fashion. The overlying skin was closed using skin anabel. Left lower quadrant skin was closed loosely with skin anabel. A [place] drain was left in place to facilitate drainage of the cavity. Dressings were then placed, and the procedure was concluded. All sponge, instrument, and needle counts were correct x2. Condition: Fair.
--- NOTE | 2018-07-23 12:37 | PDOC PROGRESS REPORT ---
Subjective Progress Note for:: 07/23/18 Reason For Visit: Z93.3 COLOSTOMY STATUS, K57.20 DVTRCLI OF LG INT W Physical Exam Vital Signs: Temp Pulse Resp BP Pulse Ox 98.2 F 96 17 182/89 H 95 07/23/18 11:33 07/23/18 11:33 07/23/18 11:33 07/23/18 11:33 07/23/18 11:37 Pulse Oximeter Continuous Start: 07/22/18 15: 07 Freq: RTQ4 Status: Active Document 07/23/18 11:37 [facility] (Rec: 07/23/18 11:37 [facility] [id number]) Pulse Oximetry Assessment Oxygen Saturation (92-100) 95 Oxygen Delivery Method Room Air Fraction of Inspired Oxygen (FIO2) 21 Equipment Usage Equipment in Use Continuous SpO2 Machine # [id number] Intake & Output 07/22/18 07/23/18 07/24/18 06:59 06:59 06:59 Intake Total 0 7740 Output Total 3490 Balance 0 4250 Weight 80.9 kg Results Laboratory Results: 07/23/18 05:24 07/23/18 05:24 07/23/18 07/23/18 05:24 05:24 WBC 11.4 H RBC 4.01 L Hgb 12.7 L Hct 37.4 L MCV 93 MCH 31.6 MCHC 33.8 RDW 13.5 Plt Count 256 Seg Neutrophils % 73.5 Lymphocytes % 14.9 Monocytes % 11.0 Eosinophils % 0.1 Basophils % 0.5 Absolute Neutrophils 8.3 H Absolute Lymphocytes 1.7 Absolute Monocytes 1.3 Absolute Eosinophils 0.0 Absolute Basophils 0.1 Sodium 137.0 Potassium 4.6 Chloride 105 Carbon Dioxide 23 Anion Gap 9 BUN 15 Creatinine 0.97 Est GFR ( Amer) > 60 Est GFR (Non-Af Amer) > 60 Glucose 137 H Calcium 8.2 L Total Bilirubin 0.8 AST 26 ALT 25 Alkaline Phosphatase 36 L Total Protein 5.3 L Albumin 3.0 L Impressions: Chest X-Ray 07/05/18 11:14 IMPRESSION: Stable calcified nodules of the right posterior and left anterior lung base. No acute findings Assessment & Plan - Diagnosis (1) Parastomal hernia Qualifiers: Obstruction and gangrene presence: without obstruction or gangrene Qualified Code(s): K43.5 - Parastomal hernia without obstruction or gangrene Is this a current diagnosis for this admission?: Yes (2) Colostomy dysfunction Is this a current diagnosis for this admission?: Yes (3) History of diverticulitis Is this a current diagnosis for this admission?: Yes - Inpatient Certification Based on my medical assessment, after consideration of the patient's comorbidities, presenting symptoms, or acuity I expect that the services needed warrant INPATIENT care.: Yes I certify that my determination is in accordance with my understanding of Medicare's requirements for reasonable and necessary INPATIENT services [42 CFR 412.3e].: Yes - Plan Summary Plan Summary: This is a 53-year-old male status post colostomy reversal and parastomal hernia closure. The patient is doing well today. He denies fevers or chills. He denies nausea or vomiting. His pain is relatively well controlled. I have encouraged him to get out of bed. 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 Maintain Lord due to limited mobility and recent pelvic dissection. I will add Flomax in preparation for Lord discontinuation tomorrow. Continue with incentive spirometry. Continue IV fluids for now.
[2018-07-23] MEDS: MORPHINE SULFATE 60 MG/60 ML RTUINJ IV PRN (16:06)
[2018-07-24] MEDS: ACETAMINOPHEN 1,000 MG/100 ML RTUPB IV SCH ×3 (01:38→17:05)
[2018-07-24] MEDS: KETOROLAC TROMETHAMINE INJ/PF 30 MG/1 ML SDV IV SCH ×3 (05:29→22:05)
[2018-07-24] MEDS: DEXTROSE 5%-LACTATED RINGERS 1,000 ML IV PRN (05:29)
[2018-07-24 05:54] LABS: ABSOLUTE BASOPHILS # (AUTO) 0.1 10^3/uL (0.0-0.2); ABSOLUTE EOSINOPHILS # (AUTO) 0.3 10^3/uL (0.0-0.6); ABSOLUTE LYMPHOCYTES (AUTO) 2.6 10^3/uL (0.5-4.7); ABSOLUTE MONOCYTES (AUTO) 1.1 10^3/uL (0.1-1.4); ABSOLUTE NEUT (AUTO) 5.4 10^3/uL (1.7-8.2); BASOPHILS % (AUTO) 0.7 % (0-2); EOSINOPHILS % (AUTO) 2.9 % (0-6); HEMATOCRIT 30.5 % (37.9-51.0); LYMPHOCYTES % (AUTO) 27.6 % (13-45); MEAN CORPUSCULAR HEMOGLOBIN 32.4 pg (27.0-33.4); MEAN CORPUSCULAR HGB CONC 34.6 g/dL (32.0-36.0); MEAN CORPUSCULAR VOLUME 94 fl (80-97); MONOCYTES % (AUTO) 11.3 % (3-13); PLATELET COUNT 212 10^3/uL (150-450); RED BLOOD COUNT 3.26 10^6/uL (4.35-5.55); RED CELL DISTRIBUTION WIDTH 13.4 % (11.5-14.0); SEGMENTED NEUTROPHILS % (AUTO) 57.5 % (42-78); TOTAL CELLS COUNTED % (AUTO) 100 %; WHITE BLOOD COUNT 9.3 10^3/uL (4.0-10.5)
[2018-07-24 05:56] LABS: HEMOGLOBIN 10.6 g/dL (13.5-17.0)
[2018-07-24 06:15] LABS: BLOOD UREA NITROGEN 9 mg/dL (7-20); CALCIUM 8.5 mg/dL (8.4-10.2); GLUCOSE 106 mg/dL (75-110); POTASSIUM 4.6 mmol/L (3.6-5.0)
[2018-07-24 06:21] LABS: ANION GAP 5 (5-19); CARBON DIOXIDE 28 mmol/L (22-30); CHLORIDE 104 mmol/L (98-107); SODIUM 136.9 mmol/L (137-145)
[2018-07-24] MEDS: ENOXAPARIN SODIUM INJ 40 MG/0.4 ML DISP.SYRIN SUBCUT SCH (09:41)
[2018-07-24] MEDS: FAMOTIDINE INJ/PF 20 MG/2 ML SDV IV SCH ×2 (09:42→22:07)
[2018-07-24] MEDS ORDERED: RINGERS SOLUTION,LACTATED 1,000 ML IV PRN (11:44)
--- NOTE | 2018-07-24 11:49 | PDOC PROGRESS REPORT ---
Subjective Reason For Visit: Z93.3 COLOSTOMY STATUS, K57.20 DVTRCLI OF LG INT W Physical Exam Vital Signs: Temp Pulse Resp BP Pulse Ox 98.7 F 88 16 140/84 H 93 07/24/18 07:58 07/24/18 07:58 07/24/18 07:58 07/24/18 07:58 07/24/18 07:59 Pulse Oximeter Continuous Start: 07/22/18 15: 07 Freq: RTQ4 Status: Active Document 07/24/18 07:59 [facility] (Rec: 07/24/18 07:59 [facility] [id number]) Pulse Oximetry Assessment Oxygen Saturation (92-100) 93 Oxygen Flow Rate (L/min) 2 Oxygen Delivery Method Nasal Cannula Equipment Usage Equipment in Use Continuous SpO2 Machine # [id number] Intake & Output 07/23/18 07/24/18 07/25/18 06:59 06:59 06:59 Intake Total 7740 4646 Output Total 3490 3330 Balance 4250 1316 Weight 80.9 kg 84.3 kg Results Laboratory Results: 07/24/18 05:04 07/24/18 05:04 07/24/18 07/24/18 05:04 05:04 WBC 9.3 RBC 3.26 L Hgb 10.6 L D Hct 30.5 L MCV 94 MCH 32.4 MCHC 34.6 RDW 13.4 Plt Count 212 Seg Neutrophils % 57.5 Lymphocytes % 27.6 Monocytes % 11.3 Eosinophils % 2.9 Basophils % 0.7 Absolute Neutrophils 5.4 Absolute Lymphocytes 2.6 Absolute Monocytes 1.1 Absolute Eosinophils 0.3 Absolute Basophils 0.1 Sodium 136.9 L Potassium 4.6 Chloride 104 Carbon Dioxide 28 Anion Gap 5 BUN 9 Creatinine 0.85 Est GFR ( Amer) > 60 Est GFR (Non-Af Amer) > 60 Glucose 106 Calcium 8.5 Impressions: Chest X-Ray 07/05/18 11:14 IMPRESSION: Stable calcified nodules of the right posterior and left anterior lung base. No acute findings Assessment & Plan - Diagnosis (1) Parastomal hernia Qualifiers: Obstruction and gangrene presence: without obstruction or gangrene Qualified Code(s): K43.5 - Parastomal hernia without obstruction or gangrene Is this a current diagnosis for this admission?: Yes (2) Colostomy dysfunction Is this a current diagnosis for this admission?: Yes (3) History of diverticulitis Is this a current diagnosis for this admission?: Yes - Plan Summary Plan Summary: This is a 53-year-old male status post colostomy reversal. The patient is afebrile today. His pain is well controlled. He is out of bed and ambulating. He is asking for his Lord to be removed. I will give the patient Flomax (he has a history of urinary retention after surgery) and remove his Lord later today. I have changed his dressing at the bedside. His midline incision is clean, dry, and intact. His left lower quadrant incision is without erythema or purulence. His abdomen is mildly distended, but he denies nausea or vomiting. Continue with ambulation and incentive spirometry. Continue current pain medication regimen. Decrease IV fluids, and continue full liquids. Awaiting bowel function.
[2018-07-24] MEDS ORDERED: TAMSULOSIN HCL 0.4 MG CAP.SR.24H PO ONE (12:30)
[2018-07-24] MEDS: MORPHINE SULFATE 60 MG/60 ML RTUINJ IV PRN (14:09)
[2018-07-25] MEDS: ACETAMINOPHEN 1,000 MG/100 ML RTUPB IV SCH ×2 (02:27→09:33)
[2018-07-25 06:04] LABS: HEMATOCRIT 30.2 % (37.9-51.0); HEMOGLOBIN 10.4 g/dL (13.5-17.0); MEAN CORPUSCULAR HEMOGLOBIN 32.3 pg (27.0-33.4); MEAN CORPUSCULAR HGB CONC 34.6 g/dL (32.0-36.0); MEAN CORPUSCULAR VOLUME 93 fl (80-97); PLATELET COUNT 243 10^3/uL (150-450); RED BLOOD COUNT 3.23 10^6/uL (4.35-5.55); RED CELL DISTRIBUTION WIDTH 13.3 % (11.5-14.0); WHITE BLOOD COUNT 7.6 10^3/uL (4.0-10.5)
[2018-07-25] MEDS: KETOROLAC TROMETHAMINE INJ/PF 30 MG/1 ML SDV IV SCH ×2 (06:25→14:27)
[2018-07-25 06:26] LABS: ANION GAP 5 (5-19); BLOOD UREA NITROGEN 6 mg/dL (7-20); CALCIUM 8.9 mg/dL (8.4-10.2); CARBON DIOXIDE 30 mmol/L (22-30); CHLORIDE 105 mmol/L (98-107); GLUCOSE 102 mg/dL (75-110); POTASSIUM 4.7 mmol/L (3.6-5.0); SODIUM 139.5 mmol/L (137-145)
[2018-07-25] MEDS ORDERED: MORPHINE SULFATE 10 MG/ML INJ IV PRN (08:45)
--- NOTE | 2018-07-25 08:51 | PDOC PROGRESS REPORT ---
Subjective Progress Note for:: 07/25/18 Reason For Visit: Z93.3 COLOSTOMY STATUS, K57.20 DVTRCLI OF LG INT W Physical Exam Vital Signs: Temp Pulse Resp BP Pulse Ox 98.1 F 99 17 179/88 H 98 07/25/18 07:44 07/25/18 07:44 07/25/18 07:44 07/25/18 07:44 07/25/18 07:48 Pulse Oximeter Continuous Start: 07/22/18 15: 07 Freq: RTQ4 Status: Active Document 07/25/18 07:48 [facility] (Rec: 07/25/18 07:48 [facility] [id number]) Pulse Oximetry Assessment Oxygen Saturation (92-100) 98 Oxygen Flow Rate (L/min) 2.5 Oxygen Delivery Method Nasal Cannula Equipment Usage Equipment in Use Continuous Pulse Oximeter 24 Hour Charge Charge Now Continuous SpO2 Machine # 9 Intake & Output 07/24/18 07/25/18 07/26/18 06:59 06:59 06:59 Intake Total 4646 1254 Output Total 3333 2755 Balance 1316 -1541 Weight 84.3 kg 83.4 kg Results Laboratory Results: 07/25/18 05:38 07/25/18 05:38 07/25/18 07/25/18 05:38 05:38 WBC 7.6 RBC 3.23 L Hgb 10.4 L Hct 30.2 L MCV 93 MCH 32.3 MCHC 34.6 RDW 13.3 Plt Count 243 Sodium 139.5 Potassium 4.7 Chloride 105 Carbon Dioxide 30 Anion Gap 5 BUN 6 L Creatinine 0.71 Est GFR ( Amer) > 60 Est GFR (Non-Af Amer) > 60 Glucose 102 Calcium 8.9 Impressions: Chest X-Ray 07/05/18 11:14 IMPRESSION: Stable calcified nodules of the right posterior and left anterior lung base. No acute findings Assessment & Plan - Diagnosis (1) Parastomal hernia Qualifiers: Obstruction and gangrene presence: without obstruction or gangrene Qualified Code(s): K43.5 - Parastomal hernia without obstruction or gangrene Is this a current diagnosis for this admission?: Yes (2) Colostomy dysfunction Is this a current diagnosis for this admission?: Yes (3) History of diverticulitis Is this a current diagnosis for this admission?: Yes - Plan Summary Plan Summary: This is a 53-year-old male status post colostomy reversal and closure of a parastomal hernia. The patient is doing well today. His pain is controlled. He is passing flatus. He denies nausea or vomiting. He is afebrile. 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 I will start oral pain medication. I will advance his diet as tolerated. I have encouraged ambulation and incentive spirometry. If the patient continues to progress well , possible discharge home tomorrow.
[2018-07-25] MEDS: ENOXAPARIN SODIUM INJ 40 MG/0.4 ML DISP.SYRIN SUBCUT SCH (09:32)
[2018-07-25] MEDS: FAMOTIDINE 20 MG TABLET PO SCH ×2 (09:33→21:41)
[2018-07-25] MEDS: IBUPROFEN 800 MG TABLET PO SCH ×2 (14:29→21:41)
[2018-07-25] MEDS ORDERED: ONDANSETRON HCL INJ/PF 4 MG/2 ML SDV IV PRN (15:00)
[2018-07-25] MEDS: HYDROCODONE/ACETAMINOPHEN 10-325 MG TABLET PO PRN ×2 (15:58→23:32)
[2018-07-25] MEDS: TAMSULOSIN HCL 0.4 MG CAP.SR.24H PO SCH (17:16)
[2018-07-26] MEDS: IBUPROFEN 800 MG TABLET PO SCH ×3 (06:51→22:24)
[2018-07-26] MEDS: DOCUSATE SODIUM 100 MG CAPSULE PO SCH ×2 (09:31→17:07)
[2018-07-26] MEDS: ENOXAPARIN SODIUM INJ 40 MG/0.4 ML DISP.SYRIN SUBCUT SCH (09:31)
[2018-07-26] MEDS: FAMOTIDINE 20 MG TABLET PO SCH ×2 (09:31→22:24)
[2018-07-26] MEDS: SILVER SULFADIAZINE 1% CREAM 25 GM TP SCH ×3 (10:53→17:07)
--- NOTE | 2018-07-26 10:55 | PDOC PROGRESS REPORT ---
Subjective Progress Note for:: 07/26/18 Reason For Visit: Z93.3 COLOSTOMY STATUS, K57.20 DVTRCLI OF LG INT W Physical Exam Vital Signs: Temp Pulse Resp BP Pulse Ox 98.6 F 70 17 160/83 H 97 07/26/18 07:29 07/26/18 07:29 07/26/18 07:29 07/26/18 07:29 07/26/18 07:59 Pulse Oximeter Continuous Start: 07/22/18 15: 07 Freq: RTQ4 Status: Active Document 07/26/18 07:59 [facility] (Rec: 07/26/18 07:59 [facility] [id number]) Pulse Oximetry Assessment Equipment Usage Equipment Standby Continuous SpO2 Machine # 9 Intake & Output 07/25/18 07/26/18 07/27/18 06:59 06:59 06:59 Intake Total 1254 2181 Output Total 2795 1130 Balance -1541 1051 Weight 83.4 kg 81 kg Results Laboratory Results: 07/25/18 05:38 07/25/18 05:38 Impressions: Chest X-Ray 07/05/18 11:14 IMPRESSION: Stable calcified nodules of the right posterior and left anterior lung base. No acute findings Assessment & Plan - Diagnosis (1) Parastomal hernia Qualifiers: Obstruction and gangrene presence: without obstruction or gangrene Qualified Code(s): K43.5 - Parastomal hernia without obstruction or gangrene Is this a current diagnosis for this admission?: Yes (2) Colostomy dysfunction Is this a current diagnosis for this admission?: Yes (3) History of diverticulitis Is this a current diagnosis for this admission?: Yes - Plan Summary Plan Summary: This is a 53-year-old male postop day #4 from a colostomy reversal with parastomal hernia repair. Patient is doing well today. He reports passing "large amounts of flatus". Patient has not had a bowel movement yet. He is afebrile, and his pain is controlled with medication. The patient is eating a regular diet. He denies nausea or vomiting. His drain is productive of serosanguineous output. His incisions are clean, without obvious infection. His abdomen does appear slightly distended today. I will start the patient on stool softeners. I will continue the patient's diet for now. Plan for discharge home when abdominal distention subsides.
[2018-07-26] MEDS: HYDROCODONE/ACETAMINOPHEN 10-325 MG TABLET PO PRN (14:54)
[2018-07-26] MEDS: TAMSULOSIN HCL 0.4 MG CAP.SR.24H PO SCH (17:07)
[2018-07-27] MEDS: HYDROCODONE/ACETAMINOPHEN 10-325 MG TABLET PO PRN ×2 (03:25→08:37)
[2018-07-27] MEDS: IBUPROFEN 800 MG TABLET PO SCH (05:13)
--- NOTE | 2018-07-27 07:13 | PDOC DISCHARGE SUMMARY ---
General - Admit/Disc Date/PCP Admission Date/Primary Care Provider: 07/22/18 05:28 Discharge Date: 07/27/18 - Discharge Diagnosis (1) Parastomal hernia Is this a current diagnosis for this admission?: Yes (2) Colostomy dysfunction Is this a current diagnosis for this admission?: Yes (3) History of diverticulitis Is this a current diagnosis for this admission?: Yes - Additional Information Discharge Diet: As Tolerated Discharge Activity: No Lifting Over 10 Pounds Home Medications: No Home Medications 07/23/18 History of Present Illness History of Present Illness: FRANCINE BURNS is a 53 year old male with a large parastomal hernia and unwanted colostomy. His colostomy and parastomal hernia make it difficult for him to work. The patient requested colostomy reversal. The patient was admitted to the hospital on for his surgery. Patient's surgery was successful and the patient was taken to the floor in stable condition. Hospital Course Hospital Course: After surgery, the patient was taken to the floor in stable condition. On postoperative day #2 the patient began passing small amounts of flatus. By postoperative day #4 the patient had passed large amounts of flatus, had a bowel movement, was tolerating a diet, was ambulating in the halls, and his pain was controlled with oral pain medication. At this time it was felt that the patient had reached maximal hospital benefit and was fit for discharge. Physical Exam Vital Signs: Temp Pulse Resp BP Pulse Ox 98.9 F 77 17 151/80 H 90 L 07/26/18 23:28 07/26/18 23:28 07/26/18 23:28 07/26/18 23:28 07/27/18 04:00 Pulse Oximeter Continuous Start: 07/22/18 15: 07 Freq: RTQ4 Status: Active Document 07/27/18 04:00 HCR (Rec: 07/27/18 05:25 HCR [id number]) Pulse Oximetry Assessment Oxygen Saturation (92-100) 90 Oxygen Delivery Method Room Air Fraction of Inspired Oxygen (FIO2) 21 Equipment Usage Equipment in Use Continuous SpO2 Machine # 9 Intake & Output 07/26/18 07/27/18 07/28/18 06:59 06:59 06:59 Intake Total 2181 2290 Output Total 1170 470 Balance 1011 1820 Weight 81 kg 81.5 kg Results Laboratory Results: 07/25/18 05:38 07/25/18 05:38 Impressions: Chest X-Ray 07/05/18 11:14 IMPRESSION: Stable calcified nodules of the right posterior and left anterior lung base. No acute findings Qualifiers - * PATIENT BEING DISCHARGED WITH ANY OF THE FOLLOWING DIAGNOSIS: No Plan Discharge Plan: Discharge home. Diet as tolerated. Activity: No lifting greater than 10 pounds x 6 weeks. Follow up with me in 1 week for drain removal. Okay to shower. No tub baths or swimming times 2 weeks. [place] 10/325 mg p.o. every 6 hours as needed for pain. Time Spent: Less than 30 Minutes
[2018-07-27 07:58] VITALS: BP 151/83
== END 2018-07-27 09:58 | disposition home or self-care (01) | DRG 346 ==
LOC: INOR 05:28 → 5 15:57
PROVIDERS: ADMIT Surgery; ATTEND Surgery
PROC: 0WUF0JZ Supplement Abdominal Wall with Synthetic Substitute, Open Approach (ICD-10-PCS; 2018-07-22)
PROC: 0DSN0ZZ Reposition Sigmoid Colon, Open Approach (ICD-10-PCS; principal; 2018-07-22 07:30)
DX: Z43.3 Encounter for attention to colostomy (principal); I10 Essential (primary) hypertension; K43.5 Parastomal hernia without obstruction or gangrene; F17.210 Nicotine dependence, cigarettes, uncomplicated
CPT/HCPCS: 36415; 71046; 80048; 80053; 840; 85025; 85027; 86850; 86900; 86901; 90471; 90686; 93005; 93010; 94762; 94799; C1781; G0008; J0131; J0330; J0744; J1100; J1170; J1650; J1885; J2250; J2270; J2405; J2704; J3010; J3490; S0028

== ENCOUNTER 2018-08-27 15:01 | Emergency (ER) | payer SELFPAY ==
[2018-08-27 15:17] VITALS: BP 156/92
[2018-08-27] MEDS ORDERED: LIDOCAINE 1% INJ-PF (10 MG/ML) 30 ML SDV INJ ONE (17:10)
--- NOTE | 2018-08-27 17:51 | ER Document Report ---
HPI - HPI Pain Level: 3 Notes: Patient is a 53-year-old male who presents to the emergency department with chief complaint of fishhook stuck in his right forearm on the dorsal aspect. Patient reports it is a 1 barbed fishhook. Patient states that he did this just prior to arrival. He reports that his tetanus is up-to-date and he had one 1 year ago. - CONSTITUTIONAL Constitutional: DENIES: Fever, Chills - EENT EENT: DENIES: Sore Throat, Ear Pain, Eye problems - NEURO Neurology: DENIES: Headache, Weakness, Vision blurred, Dizzinesss / Vertigo - CARDIOVASCULAR Cardiovascular: DENIES: Chest pain - RESPIRATORY Respiratory: DENIES: Trouble Breathing, Coughing - GASTROINTESTINAL Gastrointestinal: DENIES: Abdominal Pain, Black / Bloody Stools - URINARY Urinary: DENIES: Dysuria, Urgency, Frequency - REPRODUCTIVE Reproductive: DENIES: : - MUSCULOSKELETAL Musculoskeletal: DENIES: Extremity pain <WILY SAGE - Last Filed: 08/27/18 20:54> Past Medical History - General Information source: Patient - Social History Smoking Status: Former Smoker Chew tobacco use (# tins/day): No Frequency of alcohol use: Occasional Drug Abuse: None Family History: Reviewed & Not Pertinent Patient has suicidal ideation: No Patient has homicidal ideation: No - Past Medical History Cardiac Medical History: Reports: Hx Hypertension Denies: Hx Coronary Artery Disease, Hx Heart Attack Pulmonary Medical History: Reports: Hx Pneumonia - x1 Denies: Hx Asthma, Hx Bronchitis, Hx COPD Neurological Medical History: Denies: Hx Cerebrovascular Accident, Hx Seizures Renal/ Medical History: Denies: Hx Peritoneal Dialysis Musculoskeletal Medical History: Reports Hx Arthritis - joints ache - Immunizations Hx Diphtheria, Pertussis, Tetanus Vaccination: Yes - 07/25/17 Hx Pneumococcal Vaccination: 10/25/17 <WILY SAGE - Last Filed: 08/27/18 20:54> Vertical Provider Document - CONSTITUTIONAL Notes: PHYSICAL EXAMINATION: GENERAL: Well-appearing, well-nourished and in no acute distress. HEAD: Atraumatic, normocephalic. EYES: Pupils equal round extraocular movements intact, conjunctiva are normal. ENT: Nares patent NECK: Normal range of motion LUNGS: No respiratory distress Musculoskeletal: Normal range of motion NEUROLOGICAL: Normal speech, normal gait. PSYCH: Normal mood, normal affect. SKIN: Warm, Dry, normal turgor, no rashes or lesions noted. [place] noted to right forearm. - INFECTION CONTROL TRAVEL OUTSIDE OF THE [place] IN LAST 30 DAYS: No <WILY SAGE - Last Filed: 08/27/18 20:54> Course - Re-evaluation Re-evalutation: 08/27/18 18:06 Is Saurabh Perera physician bilingual administrative assistant. I did a physical removal on this patient for the provider Wily Sage. The fishhook was in the right forearm it was a single look. It had a large extended barbed tip. It was located in the patient 's right forearm on the dorsal aspect. About 5 inches from the wrist. I cleaned the area around the hook with Betadine I instilled approximately 2 mL's of 1% lidocaine in and around the area under the skin where the hook was located. I withdrew the syringe with the lidocaine applied pressure and waited a few minutes. I then took a 14-gauge cath along needle with the Cathlon still in place I turned the supervisor crack off as much as possible I then used a 14-gauge needle to run down the length of the hook until the tip covered the phuc once the phuc was covered pulled back on the needle and removed the hook intact. I had about 2 attempts of this same procedure before it was removed completely without further damage to the tissue area. Area was then cleaned again pressure applied and the Band-Aid applied over top. The entire hook was removed there was no need to cut and all was accounted for at the end. Patient tolerated this procedure without any problem. - Vital Signs Vital signs: Temp Pulse Resp BP Pulse Ox 98.5 F 95 156/92 H 98 08/27/18 15:13 08/27/18 15:13 08/27/18 15:13 08/27/18 15:13 <SAGE PERERA - Last Filed: 08/27/18 18:06> - Vital Signs Vital signs: Temp Pulse Resp BP Pulse Ox 98.5 F 95 156/92 H 98 08/27/18 15:13 08/27/18 15:13 08/27/18 15:13 08/27/18 15:13 <WILY SAGE - Last Filed: 08/27/18 20:54> Discharge <SAGE PERERA - Last Filed: 08/27/18 18:06> <WILY SAGE - Last Filed: 08/27/18 20:54> - Discharge Clinical Impression: Fish hook in forearm Condition: Stable Disposition: HOME, SELF-CARE Additional Instructions: The fishhook was removed from your arm. Please take antibiotics as prescribed. You reported that your tetanus was up-to-date so that was not redone today. Please follow-up with your primary care provider for any further needs or concerns. Keep the area clean and dry. Prescriptions: Clindamycin HCl 300 mg PO TID #30 capsule
== END 2018-08-27 17:55 | disposition home or self-care (01) ==
LOC: ER 15:01
DX: S51.841A Puncture wound with foreign body of right forearm, initial encounter (principal); W26.8XXA Contact with other sharp object(s), not elsewhere classified, initial encounter; I10 Essential (primary) hypertension; Z87.891 Personal history of nicotine dependence
CPT/HCPCS: 99282; J3490